=== PATIENT | male | born 1950 | race Caucasian/White ===

== ENCOUNTER 2021-08-22 13:21 | Emergency (ER) | payer OTHER ==
[~2021-08-22] VITALS: Ht 170.2 cm; Wt 70.3 kg
[2021-08-22] MEDS ORDERED: GLUMETZA1000 MG PO (13:46)
[2021-08-22] MEDS ORDERED: HUMALOG MI100 UNIT/2 (13:46)
[2021-08-22] MEDS ORDERED: COZAAR50 MG PO (13:47)
== END 2021-08-22 14:31 | disposition home or self-care (01) ==
LOC: ER 13:21
DX: S61.211A Laceration without foreign body of left index finger without damage to nail, initial encounter (principal); W26.0XXA Contact with knife, initial encounter; Y93.9 Activity, unspecified; Y92.9 Unspecified place or not applicable; Y99.9 Unspecified external cause status